=== PATIENT | female | born 1985 | race Caucasian/White ===

== ENCOUNTER 2016-10-07 22:06 | Emergency (ER) | payer OTHER ==
--- NOTE | 2016-10-07 22:22 | EDM.PDOC ---
ED HPI GENERAL MEDICAL PROBLEM - General Chief Complaint: General Stated Complaint: UNK Time Seen by Provider: 10/07/16 22:21 Source of Information: Reports: Patient - History of Present Illness INITIAL COMMENTS - FREE TEXT/NARRATIVE: HISTORY AND PHYSICAL: History of present illness: []Patient with anxiety and panic presents with panic attack which began this evening after receiving a note from her landlord that she may be evicted due to her service dog, she is not on any medication she has been in med on medication in the past but has been provided a service dog by her primary care provider in [place] at some point. Now she and her landlord are in a feud concerning the service past. This has escalated over some time with different notices police have been involved at some point Patient received Valium 5 mg IM with much improvement of symptoms she is currently calm and provides history No fever nausea vomiting chills sweats no chest pain shortness breath headache dizziness or palpitation no bowel or urine symptoms Review of systems: As per history of present illness and below otherwise all systems reviewed and negative. Past medical history: As per history of present illness and as reviewed below otherwise noncontributory. Surgical history: As per history of present illness and as reviewed below otherwise noncontributory. Social history: No reported history of drug or alcohol abuse. Family history: As per history of present illness and as reviewed below otherwise noncontributory. Physical exam: HEENT: Atraumatic, normocephalic, pupils reactive, negative for conjunctival pallor or scleral icterus, mucous membranes moist, throat clear, neck supple, nontender, trachea midline. Lungs: Clear to auscultation, breath sounds equal bilaterally, chest nontender. Heart: S1S2, regular, negative for clicks, rubs, or JVD. Abdomen: Soft, nondistended, nontender. Negative for masses or hepatosplenomegaly. Negative for costovertebral tenderness. Pelvis: Stable nontender. Genitourinary: Deferred. Rectal: Deferred. Extremities: Atraumatic, negative for cords or calf pain. Neurovascular unremarkable. Neuro: Awake, alert, oriented. Cranial nerves II through XII unremarkable. Cerebellum unremarkable. Motor and sensory unremarkable throughout. Exam nonfocal. Diagnostics: []CBC CMP Therapeutics: []Valium 5 mg IM Ativan 0.5 mg by mouth twice a day #10 no refill Follow-up with primary care establish new primary care here in [facility] Impression: []Panic attack-resolved Definitive disposition and diagnosis as appropriate pending reevaluation and review of above. no pain Pain Score (Numeric/FACES): 0 - Related Data Allergies Allergy/AdvReac Type Severity Reaction Status Date / Time No Known Allergies Allergy Verified 10/07/16 22:18 Home Meds: Home Meds . [No Known Home Meds] 10/07/16 [History] ED ROS GENERAL - Review of Systems Review Of Systems: ROS reveals no pertinent complaints other than HPI. ED EXAM, GENERAL - Physical Exam Exam: See Below Course - Vital Signs Last Recorded V/S: Last Vital Signs Temp 36.6 C 10/07/16 22:18 Pulse 135 H 10/07/16 22:18 Resp 18 10/07/16 22:18 BP 151/99 H 10/07/16 22:18 Pulse Ox 98 10/07/16 22:18 - Orders/Labs/Meds Labs: Laboratory Tests 10/07/16 10/07/16 Range/Units 22:29 22:29 WBC 15.41 H (4.0-11.0) K/uL RBC 4.84 (4.30-5.90) M/uL Hgb 15.3 (12.0-16.0) g/dL Hct 44.5 (36.0-46.0) % MCV 91.9 (80.0-98.0) fL MCH 31.6 (27.0-32.0) pg MCHC 34.4 (31.0-37.0) g/dL RDW Std Deviation 43.6 (28.0-62.0) fl RDW Coeff of Carlo 13 (11.0-15.0) % Plt Count 312 (150-400) K/uL MPV 9.10 (7.40-12.00) fL Neut % (Auto) 66.4 (48.0-80.0) % Lymph % (Auto) 25.2 (16.0-40.0) % [place] % (Auto) 6.7 (0.0-15.0) % Eos % (Auto) 1.4 (0.0-7.0) % Baso % (Auto) 0.3 (0.0-1.5) % Neut # (Auto) 10.2 H (1.4-5.7) K/uL Lymph # (Auto) 3.9 H (0.6-2.4) K/uL [place] # (Auto) 1.0 H (0.0-0.8) K/uL Eos # (Auto) 0.2 (0.0-0.7) K/uL Baso # (Auto) 0.1 (0.0-0.1) K/uL Nucleated RBC % 0.0 /100WBC Nucleated RBCs # 0 K/uL Sodium 137 (136-146) mmol/L Potassium 4.0 (3.5-5.1) mmol/L Chloride 105 (98-110) mmol/L Carbon Dioxide 22 (21-31) mmol/L BUN 16 (6.0-23.0) mg/dL Creatinine 1.0 (0.6-1.5) mg/dL Est Cr Clr Drug Dosing 75.61 mL/min Estimated GFR (MDRD) > 60.0 ml/min Glucose 148 H (60-110) mg/dL Calcium 9.5 (8.8-10.8) mg/dL Total Bilirubin 0.2 (0.1-1.5) mg/dL AST 20 (5-40) IU/L ALT 29 (8-54) IU/L Alkaline Phosphatase 85 (40-150) Total Protein 7.6 (6.0-8.0) g/dL Albumin 4.3 (3.5-5.0) g/dL Globulin 3.3 (2.0-3.5) g/dL Albumin/Globulin Ratio 1.3 (1.3-2.8) Meds: Medications Discontinued Medications Generic Name Dose Route Start Last Admin Trade Name Freq PRN Reason Stop Dose Admin Diazepam 5 mg 10/07/16 22:21 10/07/16 22:37 Valium IM 10/07/16 22:22 5 mg ONETIME ONE Administration Departure - Departure Time of Disposition: 23:09 Disposition: Home, Self-Care 01 Condition: Good Clinical Impression: Panic attack as reaction to stress - Discharge Information Forms: ED Department Discharge Additional Instructions: Medication as prescribed As discussed she will require a taxi to return home Return if symptoms persist or worsen I would recommend establishing a local primary care provider, you can call the number below to obtain primary care [facility] [address] [place] [phone] The following information is given to patients seen in the emergency department who are being discharged to home. This information is to outline your options for follow-up care. We provide all patients seen in our emergency department with a follow-up referral. The need for follow-up, as well as the timing and circumstances, are variable depending upon the specifics of your emergency department visit. If you don't have a primary care physician on staff, we will provide you with a referral. We always advise you to contact your personal physician following an emergency department visit to inform them of the circumstance of the visit and for follow-up with them and/or the need for any referrals to a consulting specialist. The emergency department will also refer you to a specialist when appropriate. This referral assures that you have the opportunity for follow-up care with a specialist. All of these measure are taken in an effort to provide you with optimal care, which includes your follow-up. Under all circumstances we always encourage you to contact your private physician who remains a resource for coordinating your care. When calling for follow-up care, please make the office aware that this follow-up is from your recent emergency room visit. If for any reason you are refused follow-up, please contact the [facility] emergency department at and asked to speak to the emergency department charge nurse.
[2016-10-07 22:59] LABS: CHLORIDE,CL 105 mmol/L (98-110); SODIUM,NA 137 mmol/L (136-146)
[2016-10-08 00:28] VITALS: BP 144/86
== END 2016-10-07 23:34 | disposition home or self-care (01) ==
LOC: MW.ED 22:06
DX: F43.0 Acute stress reaction (principal)
CPT/HCPCS: 36415; 80053; 85025; 96372; 99284; J3360

== ENCOUNTER 2016-10-24 16:13 | Emergency (ER) | payer OTHER ==
--- NOTE | 2016-10-24 16:54 | EDM.PDOC ---
ED HPI GENERAL MEDICAL PROBLEM - General Chief Complaint: Lower Extremity Injury/Pain Stated Complaint: PAIN KNEE Time Seen by Provider: 10/24/16 16:19 Source of Information: Reports: Patient History Limitations: Reports: No Limitations - History of Present Illness INITIAL COMMENTS - FREE TEXT/NARRATIVE: HISTORY AND PHYSICAL: History of present illness: Patient is a 30-year-old female that presents to the emergency room today with complaints of superficial left knee pain. States she was sitting in a chair and noticed a blood vessel on the lateral/anterior part of the patella, as she stood up "it burst". Patient reports she stood up she had pain to the left knee and bruising to the site. The digits painful to ambulate and bear weight on the affected extremity. Denies previous injury or surgery to the affected extremity. Denies any fever, chills, chest pain, shortness of breath, n/v/d, dysuria. Patient does state she has been playing soccer, and was kicked in the left dove. Just a week at an x-ray of the left knee to rule out any underlying fracture. He should declined stating she did not want the radiation exposure. Review of systems: As per history of present illness and below otherwise all systems reviewed and negative. Past medical history: As per history of present illness and as reviewed below otherwise noncontributory. Surgical history: As per history of present illness and as reviewed below otherwise noncontributory. Social history: No reported history of drug or alcohol abuse. Family history: As per history of present illness and as reviewed below otherwise noncontributory. Physical exam: Gen.: Nontoxic appearing 30-year-old female. well-developed well-nourished. Speaks in full sentences without shortness of breath. Alert and oriented. HEENT: Atraumatic, normocephalic, pupils reactive, negative for conjunctival pallor or scleral icterus, mucous membranes moist, throat clear, neck supple, nontender, trachea midline. Lungs: Clear to auscultation, breath sounds equal bilaterally, chest nontender. Heart: S1S2, regular rate and rhythm area and no overt murmurs Abdomen: Soft, obese, nondistended, nontender. Negative for costovertebral tenderness. Pelvis: Stable nontender. Genitourinary: Deferred. Rectal: Deferred. Skin: Localized area of swelling and bruising noted to the left lateral anterior patella. Extremities: Atraumatic, No tenderness to the posterior knee, calf muscle and is negative for cords or calf pain. Palpated the tib-fib, ankle and foot without pain. Neurovascular unremarkable. Strong pedal and popliteal pulses bilaterally. Neuro: Awake, alert, oriented. Cranial nerves II through XII unremarkable. Cerebellum unremarkable. Motor and sensory unremarkable throughout. Exam nonfocal. Diagnostics: Declined knee x-ray Therapeutics: Toradol IM Ice and Luis Alberto wrap Crutches Impression: Knee pain, left Hematoma of left knee Plan: 1. These use Tylenol and/or ibuprofen [id number] as needed for pain. A use Ultram at night for moderate to severe discomfort. Continue to use Luis Alberto wrap for the next 1-2 days and may use crutches for ambulation for comfort purposes. Apply ice intermittently for the next 24 hours and then may switch to heat. 2. Follow-up with your primary care provider in the next 1-2 days. Return to the ED as needed as discussed Definitive disposition and diagnosis as appropriate pending reevaluation and review of above. Onset: Today Onset Date: 10/24/16 Location: Reports: Lower Extremity, Left Quality: Reports: Sharp Severity: Moderate Worsens with: Reports: Other (Weight bearing), Movement Treatments [employer]GER: Reports: Cold Therapy Left Knee Pain Score (Numeric/FACES): 6 - Related Data Allergies Allergy/AdvReac Type Severity Reaction Status Date / Time prochlorperazine Allergy Nervousness Verified 10/24/16 16:40 [From Compazine] Home Meds: Home Meds . [No Known Home Meds] 10/07/16 [History] Past Medical History HEENT History: Reports: None Cardiovascular History: Reports: None Respiratory History: Reports: None Gastrointestinal History: Reports: None Genitourinary History: Reports: None [employer] History: Reports: , Other (See Below) Other OB/BYN History: Uterine ablation Musculoskeletal History: Reports: None Neurological History: Reports: None Psychiatric History: Reports: Anxiety, Depression, Panic Attack Endocrine/Metabolic History: Reports: None Hematologic History: Reports: None Immunologic History: Reports: None Oncologic (Cancer) History: Reports: None Dermatologic History: Reports: None - Infectious Disease History Infectious Disease History: Reports: Chicken Pox Social & Family History - Family History Family Medical History: Noncontributory - Tobacco Use Smoking Status *Q: Former Smoker Used Tobacco, but Quit: Yes Month Tobacco Last Used: 2012 - Caffeine Use Caffeine Use: Reports: Coffee - Recreational Drug Use Recreational Drug Use: No Review of Systems - Review of Systems Review Of Systems: ROS reveals no pertinent complaints other than HPI. ED EXAM, GENERAL - Physical Exam Exam: See Below (See dictation) Course - Vital Signs Last Recorded V/S: Last Vital Signs Temp 35.8 C 10/24/16 16:34 Pulse 89 10/24/16 16:34 Resp 20 10/24/16 16:34 BP 129/63 10/24/16 16:34 Pulse Ox 99 10/24/16 16:34 - Orders/Labs/Meds Meds: Medications Discontinued Medications Generic Name Dose Route Start Last Admin Trade Name Eliseo PRN Reason Stop Dose Admin Ketorolac Tromethamine 60 mg 10/24/16 16:59 10/24/16 17:04 Toradol IM 10/24/16 17:00 60 mg ONETIME ONE Administration Departure - Departure Time of Disposition: 17:42 Disposition: Home, Self-Care 01 Clinical Impression: Hematoma - Discharge Information Referrals: PCP,None [Primary Care Provider] - Forms: ED Department Discharge Additional Instructions: The following information is given to patients seen in the emergency department who are being discharged to home. This information is to outline your options for follow-up care. We provide all patients seen in our emergency department with a follow-up referral. The need for follow-up, as well as the timing and circumstances, are variable depending upon the specifics of your emergency department visit. If you don't have a primary care physician on staff, we will provide you with a referral. We always advise you to contact your personal physician following an emergency department visit to inform them of the circumstance of the visit and for follow-up with them and/or the need for any referrals to a consulting specialist. The emergency department will also refer you to a specialist when appropriate. This referral assures that you have the opportunity for followup care with a specialist. All of these measure are taken in an effort to provide you with optimal care, which includes your followup. Under all circumstances we always encourage you to contact your private physician who remains a resource for coordinating your care. When calling for followup care, please make the office aware that this follow-up is from your recent emergency room visit. If for any reason you are refused follow-up, please contact the [facility] emergency department at and ask to speak to the emergency department charge nurse. [facility] Primary care- Internal Medicine and [place] [id number] [place] [phone] 1. Please use Tylenol and/or ibuprofen [id number] as needed for pain. May use Ultram at night for moderate to severe discomfort. Continue to use Luis Alberto wrap for the next 1-2 days and may use crutches for ambulation for comfort purposes. Apply ice intermittently for the next 24 hours and then may switch to heat. 2. Follow-up with your primary care provider in the next 1-2 days. Return to the ED as needed as discussed
[2016-10-24] MEDS ORDERED: Ketorolac 60 MG/2 ML SDV IM ONE (16:59)
[2016-10-24 18:26] VITALS: BP 125/62
== END 2016-10-24 18:05 | disposition home or self-care (01) ==
LOC: MW.ED 16:13
DX: S80.02XA Contusion of left knee, initial encounter (principal); Z88.8 Allergy status to other drugs, medicaments and biological substances; Z87.891 Personal history of nicotine dependence; W21.89XA Striking against or struck by other sports equipment, initial encounter; Y93.66 Activity, soccer
CPT/HCPCS: 96372; 99283; J1885